=== PATIENT | male | born 1955 | race Caucasian/White ===

== ENCOUNTER → 2025-03-07 | Outpatient (CLI) | payer MEDICARE, SELFPAY ==
--- NOTE | 2025-03-07 14:45 | NEURO ---
NCS and/or EMG Patient Report Ordering Doctor: Cole Orellana DATE OF SERVICE: 03/07/25 Parth presents for electrodiagnostic testing of the left lower limb. He reports decreased range of motion in the left foot. Electrodiagnostic findings: Left peroneal motor nerve demonstrates prolonged distal latency with reduced amplitude and borderline reduced conduction velocity. No significant drop in conduction across the fibular head. Left tibial motor response is within normal limits. Prolonged left tibial and left peroneal F?wave. Normal left sural and superficial peroneal responses. H?reflexes prolonged bilaterally. Needle EMG testing performed the left lower limb. All muscles tested showed no evidence of denervation with normal motor unit action potentials. Electrodiagnostic impression: This is an abnormal study. 1. 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 Consider testing of the right lower limb to evaluate for peripheral polyneuropathy. 2. No electrodiagnostic evidence for lumbosacral radiculopathy. Multi Select Codes Neurology Neurology Interp Codes: 40437-45 Musc test done w/n test comp (interp) and 99856-10 Nrv cndj tst 5-6 studies (interp)
== END | disposition home or self-care (01) ==
LOC: PSN 08:19
PROVIDERS: PCP Family Medicine; Referring Provider Family Medicine; Visit Provider Family Medicine
DX: M21.372 Foot drop, left foot (principal); S32.040S Wedge compression fracture of fourth lumbar vertebra, sequela
CPT/HCPCS: 95886; 95909